=== PATIENT | female | born 1935 | race Caucasian/White ===

== ENCOUNTER 2016-05-23 07:08 | Inpatient (IN) | payer MEDICARE, OTHER ==
[~2016-05-23] VITALS: Ht 165.1 cm; Wt 61.8 kg
[2016-05-23] VITALS (14 sets, daily range): BP systolic 113–144; BP diastolic 44–67; PULSE 45–68; RESP 10–20; O2SAT 97–100
[2016-05-23] MEDS: Lactated Ringer's 1,000 ML IV SCH ×3 (05:00→10:07)
[~2016-05-23 07:08] MED LIST: ASPI-973 PO; CALC-140 PO; CARV25TA2 PO; CLOB15CR3 TOP; CeFAZolin 2 Gm/50 mL D5W IV Premix IV ONE; DESO15CR25 TOP; FLAX100038 PO; Heparin 5,000 Unit/mL Inj SUBQ ONE; KTC2C15 TP; MULT-666 PO; OMEG500C3 PO; SIMV5TAB7 PO
--- NOTE | 2016-05-23 07:09 | PCM.HPANE ---
Patient Data Surgeon Admitting Provider: Attending Provider:Tariq Carballo MD Primary Care Physician:America Shaw MD Other Provider:Kelley Gipson Anesthesia Reason for Visit Left Lower Quadrant Metastatic Colon Cancer Ht/WT & BMI Height (Feet): 5 Height (Inches): 5 Weight (Kilograms): 63.9 Body Mass Index 23.00 Allergies Coded Allergies: morphine (Verified Allergy, Severe, hallucinations, 04/19/16) Past Anesthesia History Anesthesia History: Denies:: Abnormal Airway, Anesthesia Reactions, Difficult Intubation, Fam Anesthesia Reaction, Fam Malignant Hypertherm, Malignant Hyperthermia Diabetes History Hx Diabetes?: No MRSA MRSA: No Medications Blood Thinner: Aspirin Hypertension Medication: Yes Home Meds Incl Beta Valentine: Yes Reported Medications Flaxseed Oil ([place]-3 Flaxseed Oil)1,000 Mg Capsule1,000 Mg PO DAILY 04/19/16 Multivitamin (Once Daily)1 Each Tablet1 Each PO 03/17/15 Aspirin 81 Mg [id number] Mg PO DAILY Ref 0 03/17/15 Simvastatin 5 Mg Tablet5 Mg PO HS 30 Days Ref 0 10/22/14 Ketoconazole 15 Gm Cream..g.15 Gm TP BID 10/22/14 [place]-3 Fatty Acids (Fish Oil)500 Mg Capsule Po Bid 10/22/14 Desonide (Desonide Cream)15 Gm Cream..g.1 Applic TOP BID #1 TUBE Ref 0 10/22/14 Clobetasol Propionate/Emoll (Clobetasol Emollient 0.05% Crm)15 Gm Cream..g.1 Appl TOP 5x day #1 TUBE 10/22/14 Carvedilol 25 Mg [id number] Mg PO DAILY 30 Days Ref 0 10/22/14 Calcium Carbonate/Vitamin D3 (Calcium + Vitamin D Tablet)1 Each Tablet2 Each PO DAILY 10/22/14 History History of ENT Problems?: No HEENT History: Positive for:: Cataracts Denies:: Abnormal Airway Difficult Intubation Dysphagia Hearing Problem Sinus Problem Hx of Heart Problems?: Yes Cardiovascular History: Positive for:: Chest Pain (past hx) Hypertension Denies:: AICD Atrial Fibrillation Cardiac Surgery Congestive Heart Failure Edema Heart Murmur Irregular Heartbeat Pacemaker Valvular Heart Disease Hx of Respiratory Problem?: No Respiratory History: Denies:: Asthma COPD Chest Surgery Cough Dyspnea Emphysema Hemoptysis Oxygen Administration Pulmonary Embolism Tuberculosis Use of C-PAP Machine Hx Neurologic Problems?: No Neurological History: Denies:: CVA Dementia Dizziness Headaches Multiple Sclerosis Parkinson's Disease Seizures Hx of GI Problems?: Yes Gastrointestinal History: Positive for:: Rectal Bleeding Denies:: Cirrhosis Diverticulitis Gastroesphageal Reflux Gastrointestinal Bleeding Heartburn Hepatitis Hiatal Hernia Other GI Pertinent History: past hx rectal ca with colostomy- ulcerations colostomy current admission problem Hx of Problems?: No Genitourinary History: Denies:: HX of Hemodialysis Kidney Stones HX of Peritoneal Dialysis: No Female Hx: Positive for:: Problems with Breasts? (1968) Denies:: Currently Endometriosis Pelvic Inflammatory Skin History: Denies:: History Skin Disorders? Pressure Ulcers Hx Musculoskeletal Problems?: No Musculoskeletal History: Denies:: Degenerative Joint Joint Replacement Musculoskeletal Trauma Hx of Psycho/Social Problems?: No Psycho Social History: Denies:: Anxiety Bipolar Disorder Hx Depression Hx Surgeries?: Yes (LAPARATOMY, COLON RESECTION WITH COLOSTOMY, PELUNE EXENTERATION) Hx Any Other Health Problems?: Yes Other History: Positive for:: Cancer (RECTAL CA & CHRONIC MYELOCYTIC LEUKEMIA NOT REQ. RX) Denies:: Endocrine Disease Hospitalization Thyroid Disease History Blood Transfusions: Positive for:: Blood Transfusions Denies:: Blood Transfuse Reaction Hx Diabetes: No Hx Alcohol Use: NoHx Substance Use: No Smoking Status: Never Smoker Have You Smoked inLast 12 mo: No Stop/Bang Treated for Sleep Apnea?: No Do You Have a CPAP Machine?: No S-Snoring: Do You Snore Loudly: No T-Tired: feel tired, fatigued: No O-Obsered: Observed not breath: No P-Blood Pressure: treated: Yes B- Body Mass Index > 35 kg/m2: No A- Age over 50: Yes N- Neck Large Circumference: No G- Gender Male: No AZAM Total Score: 2 AZAM Risk Assessment: Low Risk, <3 Yes Risk Assessment Category Category 1A: Patient has history of documented sleep apnea, and HAS NOT received any narcotic, sedative or anesthesia administration during this stay. Category 1B: Patient has history of documented sleep apnea, and HAS received any narcotic , sedative or anesthesia administration during this stay Category 2: Patient has SUSPECTED Obstructive Sleep Apnea, and HAS received any narcotic , sedative or anesthesia administration during this stay. Category 3: Patient has SUSPECTED Obstructive Sleep Apnea and HAS NOT received narcotic, sedative or anesthesia administration during this stay. Category 4: Outpatient in Procedural Areas with known sleep apnea or who screen positive for High Risk via the STOP/BANG questionnaire. Exam Exam General Appearance: Alert, Oriented X3, Cooperative, No Acute Distress HEENT/AIRWAY: MP 2 Lungs: Clear to Auscultation, Normal Air Movement Heart: Exam Unremarkable, Regular Rate/Rhythm, No Murmurs/Rubs/Gallops Meds/Labs/Diagnostics Admission Meds Current Medications Lactated Ringer's (Lr) 1,000 ml @ 120 mls/hr Q8H20M IV Last administered on t 05:34; Start 05/23/16 at 05:00; Stop 05/23/16 at 13:19 Plan Impression Patient chart reviewed, patient interviewed and anesthestic plan with risks, benefits, and alternatives discussed, and informed consent obtained. ASA Physical Status: ASA2 Mod Systemic Disease Anesthetic Plan: GA, Epidural Bene/Risks/Altern/Consents: Yes HP Complete Prior to Induction: Yes Otoniel Yousif MD May 23, 2016 07:09
[2016-05-23] MEDS ORDERED: metroNIDAZOLE 500 mg/100 mL NS Premix IV ONE (07:18)
[2016-05-23] MEDS ORDERED: Heparin 5,000 Unit/mL Inj ONE (07:18)
[2016-05-23] MEDS ORDERED: EPHEDrine Sulfate 50 mg/mL Inj IV PRN (10:30)
[2016-05-23] MEDS ORDERED: fentaNYL-PF 50 mCg/mL 2 mL Inj IVPUSH PRN ×2 (10:30→11:05)
[2016-05-23] MEDS ORDERED: Ondansetron 2 mg/mL 2 mL Inj IVPUSH PRN ×3 (10:30→12:55)
[2016-05-23] MEDS ORDERED: Atropine 1 mg/mL Inj IVPUSH PRN (10:30)
[2016-05-23] MEDS ORDERED: fentaNYL 2 mCg/mL-Bupivicaine 0.125% 100 mL Premix EPIDURAL ONE (10:45)
[2016-05-23] MEDS ORDERED: Heparin 5,000 Unit/mL Inj SUBQ ONE (10:54)
[2016-05-23] MEDS ORDERED: Lactated Ringer's 1,000 ML IV ONE (11:00)
[2016-05-23] MEDS ORDERED: Lactated Ringer's 500 ML IV PRN (11:03)
[2016-05-23] MEDS ORDERED: Lactated Ringer's 1,000 ML IV SCH (11:03)
[2016-05-23] MEDS ORDERED: Dexamethasone 4 mg/mL Inj IVPUSH PRN (11:05)
[2016-05-23] MEDS ORDERED: Phenylephrine 10,000 mCg/mL Inj IVPUSH PRN (11:05)
[2016-05-23] MEDS ORDERED: MetoCLOpramide 5 mg/mL 2 mL Inj IVPUSH PRN ×2 (11:05→12:55)
[2016-05-23] MEDS ORDERED: EPHEDrine Sulfate 50 mg/mL Inj IVPUSH PRN (11:05)
[2016-05-23 11:18] LABS: APPEARANCE,URINE HAZY (CLEAR,HAZY); COLOR,URINE STRAW (YELLOW); OCCULT BLOOD,URINE NEGATIVE (NEGATIVE); UROBILINOGEN,URINE NORMAL (NORMAL)
--- NOTE | 2016-05-23 13:45 | OP ---
[address] [address] OPERATIVE REPORT PATIENT: RALPH JOHNS : 1935 MR#: [id number] ADMIT: 05/23/2016 JOB ID: [id number] DATE OF SURGERY: 05/23/2016 PREOPERATIVE DIAGNOSIS(ES): Abdominal wall recurrent rectal cancer. POSTOPERATIVE DIAGNOSIS(ES): 1. Recurrent abdominal wall rectal cancer. 2. Extensive intra-abdominal adhesions. 3. Parastomal hernia. OPERATION: 1. En bloc resection of left end-colostomy with abdominal wall metastatic mass. 2. Extensive lysis of adhesions. 3. Repair parastomal hernia with mesh. 4. Left end colostomy. SURGEON: Tariq Carballo MD TUTORING MANAGER: Dylan Lyon PA-C. INDICATIONS: The patient is an 81-year-old female with a long complex history of rectal cancer. She initially had a transanal excision of a rectal polyp that was benign but it recurred and was malignant and in 2008 she had an abdominoperineal resection for a stage I rectal cancer. In 2010, she developed with a pelvic recurrence and had preoperative radiation and chemotherapy followed by a major pelvic resection by Dr. Wesley Zuniga at the [facility]. She then subsequently received eight cycles of pseudo adjuvant chemotherapy with FOLFOX. She has had no evidence of recurrence. Last fall, she had a follow up CT scan that was interpreted as showing no evidence of recurrence. However, in retrospect, there was a mass identified just below the left end colostomy within the subcutaneous tissue. 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 She then had a PET scan that showed no other evidence of metastatic disease. After discussing options with the patient, it was elected to proceed with excision of the abdominal wall mass but that would also require excision of her left end colostomy. She had a known parastomal hernia and she was advised it would likely need mesh for repair and then a plan to move her left end colostomy to a new location on the right side. Because of her previous radiation chemotherapy and now third recurrence of rectal cancer, she is felt to be at high risk for the development of surgical complications such as wound healing issues or surgical site infection. FINDINGS: The malignant mass was at a minimum 5 cm in maximum diameter. With excision of the colostomy which it grossly appeared to involve subcutaneously, the final excision site was 8 x 5 cm. All margins were grossly free of tumor. The specimen had sutures placed for margin orientation. She had extensive intra-abdominal adhesions, particularly of the small bowel up into the colostomy and to the anterior abdominal wall and to the left colon, but I was able to mobilize the colon free adhesions and then get the left colon over to the right abdominal wall ostomy site without having to make a midline incision. There was no other evidence of malignancy. DESCRIPTION OF PROCEDURE: At the beginning and end of the operation, the SCOAP checklist was completed. Dr. Otoniel Yousif placed an epidural catheter. She was then induced into a general endotracheal anesthetic. The colostomy was prepped with Betadine, and the rest of the abdominal wall with ChloraPrep. She was prepped and draped in the usual fashion. The initial part of the operation was to excise the tumor and divide the colostomy. A separate set of instruments was used for this part of the procedure. The margin of the tumor was palpable and I designed an incision that went around the subcutaneous portion of the tumor plus the colostomy. After sharply incising the skin, cautery was used to divide subcutaneous tissue and elevate the tumor again giving clear gross margins. The dissection was carried down to the fascia and the parastomal hernia was entered. I then exposed and divided the mesocolon between hemostats and ligating those pedicles with suture ligatures of 3-0 silk. Using a MARIELY, I divided the colon and after placing sutures for margin orientation, the specimen was carried off the operative field. We then changed instruments, gloves and gowns. As stated above, I spent the majority of the operation dividing adhesions which consisted of small bowel to the hernia sac of the parastomal hernia, small bowel through the descending colon and small bowel to the anterior abdominal wall. There was no evidence of an enterotomy or serosal tear. I dissected well up the descending colon to the splenic flexure having cleared the mid abdomen and left upper quadrant of the small bowel loops, and then by dividing one vascular pedicle to the descending colon, the left colon would easily reach the ostomy site. I then cut the skin of the ostomy site and then through a vertical incision opened up the anterior rectus fascia and dissected down through the rectus into the abdominal cavity. The left end colon was then brought out through the ostomy site with plenty of external colon and without any tension. I then returned to the previous ostomy site which also had the parastomal hernia. Doing a direct closure was clearly creating a lot of tension on the abdominal wall with a high likelihood of it breaking down and recurring. So I repaired it with a 6 cm Ventralex mesh sutured with interrupted 2-0 PDS sutures. I was able to close subcutaneous tissue from above to the edge of the hernia defect below with 3-0 Vicryl. I placed a 15-Burkinan Hemovac drain through a separate stab wound, secured with 2-0 nylon into the wound subcutaneously and then closed the subcutaneous tissue with running 3-0 Vicryl. This was closed in a transverse fashion. I excised Burow triangles greater than 5 cm medially and greater than 3 cm laterally and then was able to close the skin in an oblique transverse fashion with running subcuticular 4-0 Vicryl. The wound was then dressed with Dermabond. I then returned to the ostomy site at which I placed interrupted 3-0 silk sutures between the anterior rectus fascia and the colon. The ostomy was then matured in a Milana fashion with interrupted 3-0 Vicryl sutures. The ostomy was pink and there was good blood supply to the end of it. The estimated blood loss was 20 cc. There were no apparent complications. The specimens are as described above. The final sponge, needle and instrument counts were announced as correct and the patient was returned to the recovery room in stable condition. Critical assistance was provided by Dylan Lyon PA-C.
--- NOTE | 2016-05-23 15:22 | PCM.ANEP2 ---
Post Anesthesia Evaluation ASA/CMS Post Anesthesia VS in Patient's Normal Range?: Yes Resp Stable; Airway Patent?: Yes CV Function & Hydration Stable: Yes Mental Status Recovered?: Yes Pain control Satisfactory?: Yes N/V Control Satisfactory?: Yes Otoniel Yousif MD May 23, 2016 15:22
--- NOTE | 2016-05-23 15:22 | PCM.ANEP1 ---
Post Anesthesia Phase 1 PACU Phase 1 Assessment Vital Signs Vital Signs Date Time Temp Pulse Resp B/P Pulse Ox O2 Delivery O2 Flow Rate FiO2 05/23/16 14:41 48 12 119/44 100 Non-Rebreather 15 05/23/16 14:18 36 47 12 127/46 99 Non-Rebreather 15 05/23/16 14:01 45 10 121/49 99 Non-Rebreather 15 05/23/16 13:30 48 13 126/53 98 Non-Rebreather 15 05/23/16 13:16 12 98 05/23/16 13:15 52 13 127/58 98 Simple Mask 10 05/23/16 13:00 51 11 120/62 98 Simple Mask 10 05/23/16 12:40 52 13 114/47 98 Simple Mask 05/23/16 12:36 36.1 60 14 113/51 98 Simple Mask 05/23/16 07:25 35.2 67 20 144/67 97 Room Air Anesthetic Administered: GA, Epidural Level of Alertness: Sleepy, easy to arouse SARAH's with Equal Strength: No (bilateral partial motor block from epidural ) Pain: No Nausea or Vomiting: No Oxygen Delivery: Simple Mask Lungs: Clear to Auscultation, Normal Air Movement Dermatome Level: T6 (Xyphoid Process) Otoniel Yousif MD May 23, 2016 15:22
[2016-05-23] MEDS: Dextrose 5% Lactated Ringer's 1,000 ML IV SCH (16:10)
[2016-05-23] MEDS ORDERED: Heparin 5,000 Unit/mL Inj SUBQ SCH (16:30)
[2016-05-23] MEDS: Sodium Chloride LOK Flush 10 mL Syringe IVFLUSH SCH (16:30)
--- NOTE | 2016-05-23 16:43 | NUR ---
POSTOP Pt transferred from PACU to OSC unit, room 1026 at 1600; Arrived via gurney, slide board transfer to bed with 3PA. A&Ox3, Wiggles toes - states numbness r/t epidural, no current c/o pain, MARISSA patent - dressing CDI, Abdominal incision with dermabond - CDI, Colostomy patent with soft light brown stool - wafer CDI, VSS continues to run leesa at 56, low BP as per PACU stated - on 15L Non-breather mask till 1830, oriented to room, IV patent and infusing, Love patent. Bed low and call light in reach.
[2016-05-23] MEDS ORDERED: Propofol 10,000 mCg/mL 20 mL Inj ONE (16:58)
[2016-05-23] MEDS ORDERED: Rocuronium 10 mg/mL 5 mL Inj ONE (16:58)
[2016-05-23] MEDS ORDERED: fentaNYL-PF 50 mCg/mL 2 mL Inj ONE (16:58)
[2016-05-23] MEDS ORDERED: Dexamethasone 4 mg/mL Inj ONE (16:58)
[2016-05-23] MEDS ORDERED: Ondansetron 2 mg/mL 2 mL Inj ONE (16:58)
[2016-05-23] MEDS ORDERED: Ketamine 10 mg/mL 20 mL Inj ONE (16:58)
[2016-05-23] MEDS: Heparin 5,000 Unit/mL Inj SUBQ SCH (21:25)
[2016-05-24] MEDS: Sodium Chloride LOK Flush 10 mL Syringe IVFLUSH SCH ×4 (00:30→22:23)
[2016-05-24 04:22] VITALS: BP 137/66; PULSE 69; RESP 18; O2SAT 96
[2016-05-24] MEDS: Dextrose 5% Lactated Ringer's 1,000 ML IV SCH ×2 (04:34→17:10)
[2016-05-24] MEDS: Heparin 5,000 Unit/mL Inj SUBQ SCH ×3 (04:36→22:20)
[2016-05-24 05:04] VITALS: RESP 18; O2SAT 96
[2016-05-24] MEDS: fentaNYL 2 mCg/mL-Bupiv 0.125% 100 ML in IV Premix 1 EACH EPIDURAL SCH ×2 (05:11→22:19)
--- NOTE | 2016-05-24 06:25 | NUR ---
Activity Pt reporting absolutely no pain, epidural in place running fentanyl/bupivacaine at 6ml/hr. Pt reporting start of sensation below perineum. Incision with dermabond is CDI. Colostomy with light brown loose stool. Love patent. Pt now on RA, CPOx 96% O2 sats. SCDs are on. At start of shift, pt had some nausea and was given zofran with good result. Now tolerating full liquids.
[2016-05-24 07:03] LABS: BASOPHILS % (AUTO) 0.1 % (0-3); EOSINOPHILS % (AUTO) 0 % (0-5); MONOCYTES % (AUTO) 2.4 % (4-12); Mean Corpuscular Hemoglobin 31.7 pg (27.0-35.0); NEUTROPHILS % (AUTO) 15.9 % (40-74); Platelet Count 189 bil/L (150-400)
[2016-05-24] MEDS: Calcium Carbonate (Oyster Shell) 500 mg Tablet PO SCH (08:48)
--- NOTE | 2016-05-24 10:34 | PROG NOTE ---
[address] [address] PROGRESS NOTE PATIENT: RALPH JOHNS : 1935 MR#: [id number] ADMIT: 05/23/2016 JOB ID: [id number] DATE: 05/24/2016 SUBJECTIVE: Postoperative day one following abdominal resection of metastatic rectal cancer to the abdominal wall, resection of her longstanding left end-colostomy, mesh repair of her stoma site and hernia, extensive lysis of adhesions and creation of a new right-sided colostomy. She has an epidural in. She has no pain. She denies nausea or vomiting. Her past history is significant for CLL. REVIEW OF SYSTEMS: Denies nausea, vomiting. PHYSICAL EXAMINATION: Temperature is 36.9, brachial blood pressure 137/66, pulse 69, respiratory rate 18, O2 sat is 96% on room air. Abdomen is flat. Her ostomy is pink. She is putting light brown-colored liquid stool into her appliance. Left lower quadrant oblique incision healing well. Julius-Coley drain put out 25 cc yesterday. There is no output yet recorded on today. Urine output 900 cc the first 8 hours of today. LABORATORY RESULTS: White blood cell count is 40,000 with 82% lymphocytes (diagnosis CLL), hematocrit 39.5, platelet count 189,000. Electrolytes are normal. Creatinine 0.6, glucose 110. IMPRESSION: Doing well. Starting yesterday afternoon, she was putting stool into her ostomy bag. She has no pain. Her abdomen is flat. As expected, she has an elevated white blood cell count, predominantly lymphocytes, consistent with her diagnosis of chronic lymphocytic leukemia. PLAN: Out of bed today. Continue with the ERAS protocol.
--- NOTE | 2016-05-24 11:04 | PROG NOTE ---
[address] [address] PROGRESS NOTE PATIENT: RALPH JOHNS : 1935 MR#: [id number] ADMIT: 05/23/2016 JOB ID: [id number] DATE: 05/24/2016 SUBJECTIVE: The patient is an 81-year-old female who had a left colectomy on May 23, 2016 and is postop day one. Patient had a low thoracic epidural at approximately T10-11 and has excellent pain relief today. She states her pain is 0 to 2/10, experiences no nausea, itching, or somnolence. She is very satisfied with her analgesia and progress today. OBJECTIVE: Patient is sitting comfortably upright in bed and conversant. Temperature 36.9, blood pressure 137/66, RR 18, pulse 69, SpO2 of 96 on room air. Inspection of the epidural site shows it to be clean, dry, and intact without evidence of leakage, bleeding, redness, tenderness, warmth, or infection. Motor function is symmetrical in the lower extremities. ASSESSMENT: Excellent analgesia postoperative day one following left colectomy and colostomy. Patient is currently on 6 mL an hour of 0.125% bupivacaine with 2 mcg of fentanyl per mL and is not using any significant boluses. RECOMMENDATION: Continue current regimen and reassess daily in collaboration with Dr. Saul Carballo.
[2016-05-24 11:40] VITALS: BP 113/62; PULSE 69; RESP 18; O2SAT 94
--- NOTE | 2016-05-24 11:50 | NUR ---
Wound Care Wound evaluation orders received, pt seen at bedside. 81 yo female 1 day post-op. En bloc resection of left end-colostomy with abdominal wall metastatic mass.Extensive lysis of adhesions. Repair parastomal hernia with mesh and Left end colostomy. Ostomy appliance removed, draining ivan loose stool. Stoma is pink and protuberant, peristomal skin edges bleeding minimally otherwise skin looks good. Laparoscopic incision and ostomy resection incisions are Dermabond closed and well approximated at this time. New Ostomy appliance is applied using a convatec 57mm moldable flat wafer with drainable pouch. Will recheck on this patient later in the day to make sure there are no leaks or problems. Pt will follow up at the wound center with Ostomy provider on discharge.
--- NOTE | 2016-05-24 12:35 | NUR ---
Social Work Initial Assessment: SW met with patient at bedside to discuss discharge plan. Patient is a 81 year old female admitted on 05/23/16 for left lower quadrant metastatic colon cancer. Patient resides in [place] with Roberto Carlos, who assists with needs and who provide support and care.Patient payer as Medicare and [employer]. Patient PCP as MD Ford. Patient has no assisted disability nor VA benefits. Patient pharmacy of choice as [facility]. Patient has HHC history. Patient has no SNF or DME history. Patient states having AD on file. Patient states being independent with needs and states having no identified discharge needs at this time. SW to follow to determine discharge plan of care pending further clinical course. SW to follow. PLAN: Home with via POV, pending clinical course Rosa Maria MARIN Addendum: 05/24/16 at 1240 by LD BALES Amended: Links added.
[2016-05-24 13:42] VITALS: BP 128/46; PULSE 69; RESP 16; O2SAT 95
[2016-05-24 17:26] VITALS: RESP 16; O2SAT 96
--- NOTE | 2016-05-24 19:40 | NUR ---
Activity P: Pt with epidural and numbness in abdomen. Stood at EOB and became dizzy this afternoon. I: notified, orders received to keep Love catheter until ambulating more. Plan to DC epidural tomorrow. E: Pt continues to increase bed mobility and will stand again before bed.
[2016-05-24] MEDS: Polyethylene Glycol (PEG) 17 Gm Powder PO SCH (20:00)
[2016-05-24 20:44] VITALS: BP 156/69; PULSE 73; RESP 16; O2SAT 93
[2016-05-25 04:38] VITALS: BP 169/78; PULSE 68; RESP 18; O2SAT 94
[2016-05-25] MEDS: Dextrose 5% Lactated Ringer's 1,000 ML IV SCH ×2 (05:21→18:21)
[2016-05-25] MEDS: Heparin 5,000 Unit/mL Inj SUBQ SCH ×3 (05:27→22:24)
--- NOTE | 2016-05-25 05:45 | NUR ---
Activity/Pain Epidural in place and intact, effective pain management of approprite abdominal-pelvic region, CSM intact to BLE. Colostomy draining scant amount of yellow fluid, stoma is puffy and red with no signs of bleeding, appliance intact. Love is patent and draining anastasiia urine. IVF infusing. Pt tolerating PO liquids and reports diminished appetite. No chest pain, SOB, N/V. Care continues Addendum: 05/25/16 at 0618 by MATEUSZ SUAREZ RN Cruz drain to L side abdomen with minimal seroanguinous output
[2016-05-25] MEDS: Sodium Chloride LOK Flush 10 mL Syringe IVFLUSH SCH (08:30)
--- NOTE | 2016-05-25 08:32 | PROG NOTE ---
[address] [address] PROGRESS NOTE PATIENT: RALPH JOHNS : 1935 MR#: [id number] ADMIT: 05/23/2016 JOB ID: [id number] DATE: 05/25/2016 SUBJECTIVE: Postoperative day two following resection of her malignant abdominal wall mass en bloc with the end of her left end colostomy. She now has her colostomy moved to the right mid abdomen. This morning she denies nausea or vomiting. She had stool out her ostomy the first two days. She has not had any overnight. She denies abdominal pain. This is postoperative day two of her ERAS protocol. DATE: PHYSICAL EXAMINATION: She is alert and comfortable. No distress. Temperature 36.4, brachial blood pressure 169/78, pulse 68, respiratory rate 18, O2 sat room air is 94%. Her abdomen is flat. Ostomy is pink, edematous. There is no air or flatus in the appliance this morning. Urine output 2000 cc yesterday. The Julius-Coley drain from the left abdominal wall wounds 30 cc yesterday and the first 8 hours of today, it is light, serosanguineous. IMPRESSION: Overall doing well. PLAN: Continue to follow the ERAS protocol. That means removing her Love and epidural today. We will switch her to oral pain meds. Ambulate more aggressively.
[2016-05-25] MEDS: Calcium Carbonate (Oyster Shell) 500 mg Tablet PO SCH (08:56)
[2016-05-25] MEDS: HYDROcodone-APAP 5-325 mg Tablet PO PRN ×4 (08:56→23:40)
--- NOTE | 2016-05-25 09:21 | PROG NOTE ---
[address] [address] PROGRESS NOTE PATIENT: RALPH JOHNS : 1935 MR#: [id number] ADMIT: 05/23/2016 JOB ID: [id number] DATE: 05/25/2016 EPIDURAL MANAGEMENT NOTE: SUBJECTIVE: The patient is seen resting comfortably in bed. She is postop day two from her surgery. The patient had an uneventful night. She currently denies any pain at rest. She has been tolerating p.o. intake without any nausea or vomiting but does not feel very hungry. OBJECTIVE: The patient's vital signs are within normal limits. She has a thoracic epidural running at an infusion rate of 6 mL an hour. Epidural site is clean, dry and intact without any surrounding erythema or tenderness. Lower extremity motor strength is intact. IMPRESSION AND PLAN: An 81-year-old female, who is postoperative day two from a colectomy and colostomy. The patient's pain is well controlled currently on the epidural. Per General Surgery's note, in accordance with the ERAS protocols, we will discontinue the patient's epidural catheter today. The patient has been written for oral pain medications to transition to. The plan was explained to the patient, and she was in agreement.
[2016-05-25 13:07] VITALS: BP 185/80; PULSE 67; RESP 18; O2SAT 93
--- NOTE | 2016-05-25 15:36 | NUR ---
Activity: Epidural d/c'd at 0930 per MD orders, [place] effective for pain management. Up to EOB with 1p assist, pt currently sitting in chair, some dizziness noted with activity. Pt has c/o of intermittent nausea, Zofran and Reglan given with moderate relief. No emesis noted, just dry heaving and burping. No stool in colostomy, pt has sero-sang liquid in ostomy bag. Incision is LINING LAYER, no drainage noted, well approximated. Care ongoing.
[2016-05-25 19:40] VITALS: BP 170/75; PULSE 67; RESP 16; O2SAT 93
[2016-05-25] MEDS: Polyethylene Glycol (PEG) 17 Gm Powder PO SCH (19:57)
[2016-05-26 04:24] VITALS: BP 174/78; PULSE 76; RESP 16; O2SAT 95
[2016-05-26] MEDS: Heparin 5,000 Unit/mL Inj SUBQ SCH ×3 (06:14→21:20)
[2016-05-26] MEDS: Dextrose 5% Lactated Ringer's 1,000 ML IV SCH ×2 (06:14→15:52)
--- NOTE | 2016-05-26 06:26 | NUR ---
Love/Pain/Activity D/C'd Love catheter at 2015. Patient up to BSC with one person assist multiple times this shift. Voiding w/o issue. Receiving Siren 5/325 one tab PO for breakthrough pain with effective results.
[2016-05-26 06:52] LABS: Mean Corpuscular Hemoglobin 32.2 pg (27.0-35.0); Mean Corpuscular Volume 100.8 fL (81-100); Platelet Count 163 bil/L (150-400)
[2016-05-26 06:54] LABS: Magnesium 1.9 mg/dL (1.6-2.6)
[2016-05-26 08:10] LABS: BASOPHILS % (AUTO) 0 % (0-3); EOSINOPHILS % (AUTO) 0 % (0-5); MONOCYTES % (AUTO) 2 % (4-12); NEUTROPHILS % (AUTO) 12 % (40-74)
--- NOTE | 2016-05-26 09:17 | PROG NOTE ---
[address] [address] PROGRESS NOTE PATIENT: RALPH JOHNS : 1935 MR#: [id number] ADMIT: 05/23/2016 JOB ID: [id number] DATE: 05/26/2016 SUBJECTIVE: Postoperative day three following en bloc resection of her metastatic rectal cancer to her left anterior abdominal wall and adjacent to her ostomy. Overall, she is doing well with one exception. After postoperative day one, she stopped putting stool or gas out her ostomy. She says she has minimal pain. She is only taking Tylenol. She has no nausea or vomiting. PHYSICAL EXAMINATION: Alert, in no distress, smiling. Temperature 36.6, brachial blood pressure 174/78, pulse 76, respiratory rate 16, O2 sat on room air 95%. Abdomen is flat. Her ostomy is pink, a little edematous. Her oblique left lower quadrant incision is doing well. Julius-Coley drain has put out 35 cc in the previous 24 hours, 10 cc overnight. LABORATORY RESULTS: White blood cell count 35,500 (chronic lymphocytic leukemia), hematocrit is 38.8, platelet count 163,000. Electrolytes are normal. Creatinine is 0.49, glucose 99. IMPRESSION AND PLAN: Overall, she is doing well. She is doing well on oral analgesics, mostly acetaminophen. She is getting MiraLAX via the ERAS protocol. Will continue with that. Encourage ambulation. As soon as her ostomy is functioning normally, she will be able to be discharged to home, possibly this weekend.
[2016-05-26] MEDS: Calcium Carbonate (Oyster Shell) 500 mg Tablet PO SCH (09:26)
--- NOTE | 2016-05-26 12:54 | NUR ---
NUTRITION ASSESSMENT: ASSESS: Pt is an 81yo F admitted for abdominal resection of metastatic rectal cancer to the abdominal wall, resection of left end-colostomy, mesh repair of stoma site and hernia, extensive lysis of adhesions and creation of a new right-sided colostomy. She is POD 3. No reported N/V but pts appetite is decreased. Currently tolerating sips/bites-50%. She is on SCOAP protocol. Wt has been stable PMHX: metastatic colon ca. LABS: Reviewed. Clinical Rn .49 MEDS: Reviewed. Vit D, zofran GI: colostomy minimal output SKIN: Raul 18 CURRENT WTS:63.5kg, BMI 23.3kg/m2, admit wt 63.9kg DIET: Full liquid, PO sips EST. NEEDS: colon ca Kcals: 1585-1905kcal/day (25-30kcal/kg) Pro: 75-95g/day (1.2-1.5g/kg) NUTRITION DIAGNOSIS: 1.) Altered GI function related to chronic disease as evidence by pt w/metastatic colon ca and need for abdomen resection. NUTRITION INTERVENTION: 1.) Continue Impact advanced recovery 2.) Continue to slowly advance diet as tolerated MONITOR / EVAL: PO, GI, wt, labs, diet advc, POC, nutrition status. Will continue to monitor per moderate nutrition risk guidelines
[2016-05-26 13:31] VITALS: BP 190/71; PULSE 67; RESP 16; O2SAT 95
--- NOTE | 2016-05-26 13:42 | NUR ---
Social Work Continued Discharge Planning: SW spoke to patient and at bedside to discuss discharge plan. Patient states plan as home with support and care. Wound care notes reviewed and reflect recommendations for outpatient follow up for ostomy care. Patient states being in agreement to outpt wound care, per recommendations at discharge and states to provide transport . SW to follow up with wound care for outpt appointment at discharge. Patient states being independent with needs and has no other identified needs at this time. SW to follow. PLAN: Home with and outpt follow up for wound care. Home via POV, pending clinical course. SW to follow. Rosa Maria MARIN
[2016-05-26 19:52] VITALS: BP 149/70; PULSE 69; RESP 18; O2SAT 96
--- NOTE | 2016-05-26 20:29 | NUR ---
Pain/appetite/mobility Patient only taking tylenol for pain at this time. Colostomy with only seros /pink tinged fluid out today. Pt denies nausea but appetite is poor. Pt is drinking Impact drinks . Pt up to bsc with sba.
[2016-05-26] MEDS: Polyethylene Glycol (PEG) 17 Gm Powder PO SCH (21:19)
--- NOTE | 2016-05-27 02:27 | NUR ---
Mobility / Ostomy Ambulated to bathroom SBA with FWW with steady gait. Pt stated that she had no dizziness and lass nausea feeling this time. Advised her to sit up and stand slowly each time to help prevent Nausea and dizziness. at bedside helping. Right side Colostomy no output at this time. Ostomy pink and appears healthy. Advised increased ambulation. BT present. Care continues
[2016-05-27 04:22] VITALS: BP 190/79; PULSE 70; RESP 16; O2SAT 97
[2016-05-27] MEDS: Dextrose 5% Lactated Ringer's 1,000 ML IV SCH ×2 (04:27→17:00)
[2016-05-27] MEDS: Heparin 5,000 Unit/mL Inj SUBQ SCH ×3 (05:34→20:18)
--- NOTE | 2016-05-27 09:20 | PCM.PNSURG ---
Subjective Visit Information: Reason for Visit Left Lower Quadrant Metastatic Colon Cancer Surgery/Surgery Date Post-Op Day # Date of Admission: May 23, 2016 at 16:57 Hospital Day # Subjective: pt feels pretty good this am, sitting in a chair, but no output from colostomy yesterday or today so far, feels "full", but no nausea yet Objective Objective Awake, up in chair Ostomy pink, no output in bag LLQ drain in place, incision clean Vital Sign- Last 8 Hours Date Time Temp Pulse Resp B/P Pulse Ox O2 Delivery O2 Flow Rate FiO2 05/27/16 04:22 36.6 70 16 190/79 97 Room Air Intake and Output- Last 8 Hour 05/27/16 Cumulative From/Thru 07:00 05/22/16 15:25 - 05/27/16 06:07 Intake Total 800 ml 13323 ml Output Total 1680 ml 9325 ml Balance -880 ml 2249 ml Intake Oral 800 ml 4841 ml IV Total 6733 ml Output Urine Total 1680 ml 9200 ml Emesis 0 ml Drainage Total 105 ml Estimated Blood Loss 20 ml # Bowel Movements 0 1 Result Diagram: 05/26/16 0553 05/26/16 0553 Assessment & Plan Impression POD #4 s/p abd wall resection and re-siting of colostomy and MEGAN Postop ileus Elevated WBC Problems: Plan Ambulate Continue current diet, advised to slow down if she feels even more full or nausea Await bowel function return Recheck labs in AM VTE Prophylaxis: Sub-Q Heparin (Unfractionated) Leonid Alvarado MD May 27, 2016 09:20
[2016-05-27] MEDS: Calcium Carbonate (Oyster Shell) 500 mg Tablet PO SCH (09:23)
[2016-05-27 15:05] VITALS: BP 158/81; PULSE 68; RESP 16; O2SAT 97
[2016-05-27] MEDS ORDERED: Magnesium Hydroxide 10 mL Oral Concentration PO PRN (15:35)
--- NOTE | 2016-05-27 18:18 | NUR ---
Mobility/Bm Patient up ambulating in hallway several times today. Appetite slowly increasing some. Pt given milk of magnesium and had results . Pain minimal to none so declines scheduled Tylenol.
[2016-05-27] MEDS: Polyethylene Glycol (PEG) 17 Gm Powder PO SCH (19:59)
[2016-05-27 21:20] VITALS: BP 186/79; PULSE 66; RESP 16; O2SAT 94
[2016-05-28 05:38] LABS: BASOPHILS % (AUTO) 0.2 % (0-3); EOSINOPHILS % (AUTO) 0.6 % (0-5); MONOCYTES % (AUTO) 2.4 % (4-12); Mean Corpuscular Hemoglobin 31.8 pg (27.0-35.0); Mean Corpuscular Volume 99.5 fL (81-100); Platelet Count 204 bil/L (150-400)
[2016-05-28 06:00] VITALS: BP 172/76; PULSE 65; RESP 16; O2SAT 96
[2016-05-28] MEDS: Dextrose 5% Lactated Ringer's 1,000 ML IV SCH (06:14)
[2016-05-28] MEDS: Heparin 5,000 Unit/mL Inj SUBQ SCH (06:47)
--- NOTE | 2016-05-28 06:52 | NUR ---
PAIN; tylenol 2 tabs requested for c/o headache with relief. Soft bm in colostomy bag. No c/o nausea. Pleasant.
[2016-05-28] MEDS: Calcium Carbonate (Oyster Shell) 500 mg Tablet PO SCH (09:04)
--- NOTE | 2016-05-28 09:33 | PCM.PNSURG ---
Subjective Visit Information: Reason for Visit Left Lower Quadrant Metastatic Colon Cancer Surgery/Surgery Date Post-Op Day # Date of Admission: May 23, 2016 at 16:57 Hospital Day # Subjective: feels better today, there's stool output into colostomy after taking milk of mag. Has not taken pain meds. Objective Objective Awake MARISSA --> serosang Incision clean Ostomy with stool output Vital Sign- Last 8 Hours Date Time Temp Pulse Resp B/P Pulse Ox O2 Delivery O2 Flow Rate FiO2 05/28/16 06:00 36.7 65 16 172/76 96 Room Air Intake and Output- Last 8 Hour 05/28/16 Cumulative From/Thru 07:00 05/22/16 15:25 - 05/28/16 04:27 Intake Total 640 ml 26246 ml Output Total 96873 ml Balance 640 ml 4069 ml Intake Oral 5541 ml IV Total 640 ml 9163 ml Output Urine Total 70188 ml Stool Total 200 ml Emesis 0 ml Drainage Total 115 ml Estimated Blood Loss 20 ml # Bowel Movements 1 Result Diagram: 05/28/16 0512 05/28/16 0512 Assessment & Plan Impression s/p resection of abd wall metastatic CA, MEGAN, repair of parastomal hernia, and re-site of colostomy Elevated WBC (pre-existing before surgery) Problems: Plan Advance diet Remove MARISSA drain Home later today VTE Prophylaxis: Sub-Q Heparin (Unfractionated) Leonid Alvarado MD May 28, 2016 09:33
--- NOTE | 2016-05-28 10:08 | PCM.DISURG ---
Surgical Discharge Instruction Date of Service May 28, 2016 Dates of Hospitalization Date of Hospital Admission May 23, 2016 at 16:57 Providers Admitting Physician: Tariq Carballo MD Primary Care Physician: Valente Ford DO Attending Physician: Tariq Carballo MD Discharge Diagnosis Discharge Diagnosis s/p resection of abd wall metastasis, repair of parastomal hernia, and re-site of colostomy Diet Discharge Diet: No restrictions Activity Discharge Activity-General: Activity as pain allows, No lifting >15 pounds for 2 weeks, No driving while taking narcotic Dressing and Incisional Care Dressing Care: Keep dressing clean, dry & intact, Change soiled dressing Hygiene: May shower Additional Instructions Discharge Instructions Call office if colostomy output stops. Rx: none Follow Up Plan Follow-up Provider (F9): Tariq Carballo MD Mid-level Provider (F9): Dylan Lyon PA-C Follow-up appointment: Weeks (2-3) Call your provider for: Fever, Shortness of breath, Increasing abdominal pain, Vomiting, Discharge @ incision, pus discharge Leonid Alvarado MD May 28, 2016 10:08
--- NOTE | 2016-05-28 13:12 | NUR ---
MARISSA drain DC'd MARISSA DC'd per protocol. patient tolerated well
--- NOTE | 2016-05-28 15:11 | NUR ---
Discharge Patient discharged home with at 1510hrs today. discharge instructions reviewed with patient; medications, precautions and follow-up care. patient and spouse verbalized understanding and agreed with plan of care. IV removed, cath tip intact.
--- NOTE | 2016-05-30 01:22 | DIS ---
[address] [address] DISCHARGE SUMMARY PATIENT: RALPH JOHSN : 1935 MR#: [id number] ADMIT: 05/23/2016 JOB ID: [id number] DIS: 05/28/2016 DISCHARGE DIAGNOSES: 1. Metastatic rectal carcinoma to the left anterior abdominal wall. 2. Chronic lymphocytic leukemia. 3. Parastomal hernia. 4. Extensive intra-abdominal adhesions. OPERATION: 1. En block resection of left end-colostomy with abdominal wall metastasis. 2. Extensive lysis of adhesions. 3. Repair of peristomal hernia with mesh. 4. Left end colostomy relocated to right lower quadrant. INDICATIONS: An 81-year-old female with a long complex history of rectal cancer dating back to an initial excision of what was said to be a benign distal rectal polyp, but in 2008 was discovered to have a distal rectal cancer, and Dr. Isaac Carballo performed an abdominoperineal resection for a stage I rectal cancer. She did have a pelvic recurrence, and in 2010, had preoperative radiation chemotherapy and then a major pelvic resection by Dr. Wesley Zuniga at the [facility]. She was then followed by eight cycles of pseudoadjuvant chemotherapy with FOLFOX. She has had no evidence of recurrence, and a CT scan last fall was interpreted as showing no evidence of metastasis. 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 She had a PET-CT scan preoperatively which showed no other evidence of metastasis, and so after discussing options with the patient, it was elected to proceed with resection of the metastatic abdominal wall mass, but it would also require resection of a portion of her colostomy and relocation of her colostomy for the possibility of postoperative radiation. She also had an existing parastomal hernia. HOSPITAL COURSE: On the day of admission, her operation was performed. See operative report for details. Postoperatively, she had no complications. She actually had prompt return of bowel function and was passing gas and stool on the day of her operation. Her final pathology report returned showing that the entire mass was excised with clear margins, but the closest margin was 2 mm. The colonic stomal mucosa showed no evidence of invasion by tumor. There were two lymph nodes and they were negative for malignancy. As she is already well experienced with care of her ostomy, she was discharged to home with her usual ostomy care. She will return to see me in 1-2 weeks. She did have an elevated white blood cell count postoperatively which is lymphocytic dominant, consistent with her history of CLL.
[2016-06-02] MEDS ORDERED: ACET325T51 PO (11:05)
== END 2016-05-28 15:10 | disposition home or self-care (01) | DRG 982 ==
LOC: SAS 07:08 → OSC 16:57
PROVIDERS: ADMIT Surgery; ATTEND Surgery
PROC: 0WUF0JZ Supplement Abdominal Wall with Synthetic Substitute, Open Approach (ICD-10-PCS; 2016-05-23)
PROC: 0JB80ZX Excision of Abdomen Subcutaneous Tissue and Fascia, Open Approach, Diagnostic (ICD-10-PCS; 2016-05-23)
PROC: 0DN Gastrointestinal System, Release (ICD-10-PCS; 2016-05-23)
PROC: 0DN87ZZ Release Small Intestine, Via Natural or Artificial Opening (ICD-10-PCS; 2016-05-23)
PROC: 0D1M0Z4 Bypass Descending Colon to Cutaneous, Open Approach (ICD-10-PCS; principal; 2016-05-23 09:00)
DX: C79.2 Secondary malignant neoplasm of skin (principal); C91.10 Chronic lymphocytic leukemia of B-cell type not having achieved remission; K66.0 Peritoneal adhesions (postprocedural) (postinfection); K43.5 Parastomal hernia without obstruction or gangrene; Z85.048 Personal history of other malignant neoplasm of rectum, rectosigmoid junction, and anus